=== PATIENT | male | born 2005 | race Caucasian/White ===

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

== ENCOUNTER 2025-02-09 10:59 | Emergency (ER) | payer OTHER, SELFPAY ==
--- NOTE | ~2025-02-09 | CT_ITS ---
Exam: CT abdomen and pelvis with contrast Clinical History: [Lower abdominal discomfort ] Comparison: [ None available] Technique: Multiple axial CT images of the abdomen and pelvis were obtained with IV contrast. Sagittal and coronal reformatted images were obtained. FINDINGS: Lung bases: [ ] Liver: [ No mass.] [ No intrahepatic biliary duct dilatation.] Gallbladder: [ No wall thickening or stones.] Common bile duct: [ Normal caliber.] [ No stones.] Spleen: [ Within normal limits.] Pancreas: [ No mass. No pancreatic fluid collection.] Adrenals: [ No masses.] Kidneys: [ No masses. No hydronephrosis.][ ] There is a too small to characterize low-attenuation lesion in the left kidney. Lymph nodes: [ No adenopathy in the abdomen or pelvis.] Stomach, small bowel and colon: [ No bowel wall thickening or obstruction.] Mild concentric thickening of the lugo of the descending and sigmoid colon with a few scattered diverticuli. Peritoneum cavity: [ No mesenteric fat stranding or fluid.] Bladder: Mild concentric thickening of the lugo of the moderately distended bladder. Differential includes incomplete bladder wall distention versus cystitis. Osseous structures: [ No acute fracture or destructive lesion.] [ Multilevel degenerative change in the visualized spine.] Abdominal aorta: [ No aneurysm.] Additional findings: [ None of significance.] IMPRESSION: 1. Mild concentric thickening of the lugo of the moderately distended bladder. Differential includes incomplete bladder wall distention versus cystitis. 2. Mild concentric thickening of the lugo of the descending and sigmoid colon. Differential includes incomplete bowel distention versus mild colitis/diverticulitis. If symptoms persist or worsen, consider a short-term follow-up study or additional imaging for further assessment. Reviewed, dictated and finalized at location Q. IMPRESSION: 1. Mild concentric thickening of the lugo of the moderately distended bladder. Differential includes incomplete bladder wall distention versus cystitis. 2. Mild concentric thickening of the lugo of the descending and sigmoid colon. Differential includes incomplete bowel distention versus mild colitis/divertic ulitis. If symptoms persist or worsen, consider a short-term follow-up study or additio nal imaging for further assessment.
--- OUTSIDE RECORDS SUMMARY | 2025-02-09 11:03 | XMS_ITS | Clinical Summary ---
Author Organization [facility] Address [address] [place] [address] Care Team Providers Care Manager Operations And Procurement Name Role Phone Miscellaneous, Not In File Primary Care Provider Unavailable Allergies No known active allergies Medications prochlorperazin e (COMPAZINE) 10 mg tablet Take 1 tablet (10 mg total) by mouth 2 (two) times a day as needed for nausea or vomiting 10 tablet 03/15/2024 Active omeprazole 20 mg tablet,disinteg rat, delay rel Take 20 mg by mouth 2 (two) times a day 06/02/2023 Active Active Problems Problem Noted Date Diagnosed Date Cannabinoid hyperemesis syndrome 12/25/2024 Gastroenteritis 12/24/2024 Encounters Date Type Department Care Team Description 12/24/2024 12:25 AM CDT - 12/25/2024 6:44 PM CDT Hospital Encounter [facility] IM[facility] [address] [place] [address] Christopher Frederick MD Abbas, Shazia, MD Dhawan, Vibhu, MD Gastroenteritis (Primary Dx); Nausea and vomiting, unspecified vomiting type; Cannabinoid hyperemesis syndrome Discharge Disposition: Discharge to home or self care from Last 3 Months Social History Tobacco Use Types Packs/Day Years Used Date Smoking Tobacco: Never Tobacco Cessation:Counseling Given: Not Answered Alcohol Use Standard Drinks/Week Comments Defer 0 (1 standard drink = 0.6 oz pur e alcohol) AUDIT-C Answer Date Recorded Q1: How often do you have a drink containing alc ohol? Patient declined 12/24/2024 Q2: How many drinks containi ng alcohol do you have on a typical day when you are drinking? Patient declined 12/24/2024 Q3: How often do you have si x or more drinks on one occasion? Patient declined 12/24/2024 Personal Safety Answer Date Recorded Have you ever been in or are you currently in a harmful physical or emotional relationship or is someone making you feel afraid or unsafe? Denies 12/24/2024 Sex and Gender Information Value Date Recorded Sex Assigned at Not on file Legal Sex Male 8:20 AM CDT Gender Identity Not on file Sexual Orientation Not on file Obstetrics History Growth Chart Information Age Height Weight [id number] th Percentile BMI Percentile Head Circum Head Circum Percentile Date 19 years 177.8 cm (5' 10) 77.4 kg (170 lb 10.2 oz) 72.10%* 2024 18 years 70.8 kg (156 lb) 2023 * [facility] (Boys, 2-20 Years) Last Filed Vital Signs Vital Sign Reading Time Taken Comments Blood Pressure 159/88 12/25/2024 5:26 PM CDT Pulse 70 12/25/2024 5:26 PM CDT Temperature 36.7 C (98 F) 12/25/2024 5:26 PM CDT Respiratory Rate 18 12/25/2024 5:26 PM CDT Oxygen Saturation 99% 12/25/2024 5:26 PM CDT Inhaled Oxygen Concentration - - Weight 77.4 kg (170 lb 10.2 oz) 12/24/2024 6:08 AM CDT Height 177.8 cm (5' 10) 12/24/2024 6:08 AM CDT Body Mass Index 24.48 12/24/2024 6:08 AM CDT Plan of Treatment Health Maintenance Due Date Last Done Comments Depression Screening 2005 Hepatitis C Screening 2005 HPV Vaccines (2 - Male 2-dose series) 06/17/2018 12/15/2017 Meningococcal B Vaccine (1 of 2 - Standard) 2021 Regular Well Visit/Exam 18-64 12/03/2023 Influenza Vaccine (#1) 2025 8, 04/20/2017, 04/01/2012 DTaP/Tdap/Td Vaccine (7 - Td or Tdap) 12/16/2027 12/15/2017, 02/25/2011, 06/06/2007, Additional history exists Hepatitis B Screening Completed 08/06/2006 , 04/21/2006, 02/05/2006, Additional history exists Pneumococcal vaccine <65 Completed 007, 08/06/2006, 04/21/2006, Additional history exists Varicella Vaccines Completed 02/25/2011, 01/07/2007 Meningococcal Vaccine Aged Out 12/15/2017 No nikita felicitas eligible based on patient's age to complete this topic Procedures Procedure Name Priority Date/Time Associated Diagnosis Comments EGFR Routine 12/25/2024 2:28 AM CDT CBC WITHOUT DIFFERENTIAL Routine 12/25/2024 2:28 AM CDT BASIC METABOLIC PANEL Routine 12/25/2024 2:28 AM CDT OPIATES CONFIRMATION MS, URINE Routine 12/24/2024 4:12 PM CDT DRUGS OF ABUSE SCREEN, URINE WITH REFLEX CONFIRMATION Routine 12/24/2024 4:12 PM CDT URINALYSIS AND REFLEX TO MICROSCOPIC AND CULTURE STAT 12/24/2024 4:12 PM CDT DIFFERENTIAL AUTO STAT 12/24/2024 7:1 2 AM CDT PROCALCITONIN Routine 12/24/2024 7:12 AM CDT CBC WITH AUTO DIFFERENTIAL STAT 12/24/2024 7:[address] ABDOMEN PELVIS W CONTRAST ED 12/24/2024 2:07 AM CDT ETHANOL Add-On 12/24/2024 12:28 AM CDT EGFR STAT 12/24/2024 12:28 AM CDT DIFFERENTIAL AUTO STAT 12/24/2024 12: 28 AM CDT LIPASE STAT 12/24/2024 12:28 AM CDT COMPREHENSIVE METABOLIC PANEL STAT 12/24/2024 12:28 AM CDT CBC WITH AUTO DIFFERENTIAL STAT 12/24/2024 12:28 AM CDT from Last 3 Months Results * eGFR (12/25/2024 2:28 AM CDT) eGFR >90 >=60 mL/min/1. 73 m2 Comment: Interpretive Data Reference Interval Normal >/= 90 mL/min/1.73m2 Mildly decreased* 60 - 89 mL/min/1.73m2 Mildly to moderately decreased 45 - 59 mL/min/1.73m2 Moderately to severely decreased 30 - 44 mL/min/1.73m2 Severely decreased 15 - 29 mL/min/1.73m2 Kidney Failure < 15 mL/min/1.73m2 *Relative to young adult level Estimated glomerular filtration rate is determined by the 2020 CKD-EPI equation recommended by the National Kidney Foundation (A Unifying Approach to GFR Estimation: Recommendations of the NKF-ASK Task Force on Reassessing the Inclusion of Race in Diagnosing Kidney Disease, JASN 2020). The CKD-EPI equation should not be used for patients with unstable renal function and has not been validated in children and those over 70. Current interpretive data was last reviewed 2021. Blood 12/25/2024 2:28 AM CDT 12/25/2024 3:24 AM CDT us Tara Otero MD LAB BLOOD ORDERABLES Final Resul t [facility] 1 [facility] Department [place] [address] * CBC without differential (12/25/2024 2:28 AM CDT) WBC 8.76 3.80 - 9.90 K/cumm Hgb 13.7 13.0 - 17.5 g/dL [facility]) Hct 40.7 38.9 - 50.3 % [facility] Plt 226 150 - 400 K/cumm [facility] ([place] MPV 9.6 9.1 - 12.3 fL [facility] RBC 4.72 4.30 - 5.80 M/cumm [facility] MCV 86.2 81.3 - 96.4 fL [facility] MCH 29.0 27.1 - 33.3 pg [facility] MCHC 33.7 32.3 - 35.7 g/dL [facility] RDW CV 13.2 11.1 - 14.9 % [facility] RDW SD 41.5 35.7 - 48.1 fL [facility] NRBC abs 0.00 0.00 - 0.01 K/cumm [facility] Blood 12/25/2024 2:28 AM CDT 12/25/2024 3:21 AM CDT us Tara Otero MD LAB BLOOD ORDERABLES Final Resul t [facility] ([place]) 1 [facility] Department of Laboratories [place] [id number] * (ABNORMAL) Basic metabolic panel (12/25/2024 2:28 AM CDT) Sodium 136 135 - 145 mmol/L [facility] ([place]) Potassium, pl 4.5 3.3 - 4.9 mmol/L [facility] Chloride 96(L) 97 - 110 mmol/L [facility]) CO2 27 22 - 32 mmol/L [facility] Anion gap 13 2 - 15 mmol/L [facility] BUN 14 6 - 25 mg/dL [facility] Creatinine 0.88 0.80 - 1.30 mg/dL [facility] Glucose 83 70 - 199 mg/dL [facility] Comment: Interpretive Data Fasting glucose >/= 126 mg/dl is diagnostic for diabetes. Fasting is defined as no caloric intake for at least 8 hours. Fasting glucose between 100 mg/dl to 125 mg/dl is diagnostic of prediabetes. In a patient with classic symptoms of hyperglycemia or hyperglycemic crisis, a random glucose >/= 200 mg/dl is diagnostic for diabetes. In the absence of unequivocal hyperglycemia, results should be confirmed by repeat testing. The classification and Diagnosis of Diabetes Diabetes Care 2021; 46: S19-S40. Current interpretive data was last revised 2022. Calcium 9.6 8.5 - 10.3 mg/dL [facility] Blood 12/25/2024 2:28 AM CDT 12/25/2024 3:24 AM CDT us Tara Otero MD LAB BLOOD ORDERABLES Final Resul t [facility] ([place]) 1 [facility] Department [place] [address] * (ABNORMAL) Drugs of Abuse Screen, Urine with Reflex Confirmation (12/24/2024 4:12 PM CDT) Pathologist [facility] Amphetamine, ur Not Detected CutOff 500ng/mL [facility]) Comment: Interpretive Data - Amphetamines: Samples containing greater than 500 ng/mL d-methamphetamine or other cross-reacting amphetamine compounds are reported as positive. Amphetamine immunoassays are subject to significant false positive rates due to cross-reactivity of non-amphetamine drugs. Confirmatory testing required for definitive results. Current Interpretive Data was last reviewed 2022. Barbiturates, ur Not Detected CutOff 200ng/mL [facility] ([place]) Comment: Interpretive Data - Barbiturates: Samples containing greater than 200 ng/mL secobarbital or other cross-reacting barbiturate compounds are reported as positive. False positive and false negative results are possible. Confirmatory testing required for definitive results. Current Interpretive Data was last reviewed 2022. Benzodiazepines, ur Not Detected CutOff 100ng/mL [facility] ([place]) Comment: Interpretive Data - Benzodiazepines: Samples containing greater than 100 ng/mL nordiazepam or other cross-reacting compounds are reported as positive. False positive and false negative results are possible. Confirmatory testing required for definitive results. Current Interpretive Data was last reviewed 2022. Cannabinoids, ur Screen Positive, presumptive (A) CutOff 50 ng/mL [facility] ([place]) Comment: Interpretive Data - Cannabinoids: Samples containing greater than 50 ng/mL delta-9 THC -COOH or other cross- reacting compounds are reported as positive. False positive and false negative results are possible. Confirmatory testing required for definitive results. Current Interpretive Data was last reviewed 2022. Cocaine, ur Not Detected CutOff 150ng/mL [facility] ([place]) Comment: Interpretive Data - Cocaine: Samples containing greater than 150 ng/mL benzoylecgonine or other cross- reacting compounds are reported as positive. False positive and false negative results are possible. Confirmatory testing required for definitive results. Current Interpretive Data was last reviewed 2022. Fentanyl, Ur Not Detected CutOff 5 ng/mL [facility] ([place] Comment: Interpretive Data - Fentanyl: Samples containing greater than 5 ng/mL norfentanyl, fentanyl, or other cross-reacting fentanyl compounds are reported as positive. False positive and false negative results are possible. Confirmatory testing required for definitive results. Current Interpretive Data was last reviewed 2023. Methadone, ur Not Detected CutOff 300ng/mL [facility] ([place]) Comment: Interpretive Data - Methadone: Samples containing greater than 300 ng/mL d,l-methadone or other cross-reacting compounds are reported as positive. False positive and false negative results are possible. Confirmatory testing required for definitive results. Current Interpretive Data was last reviewed 2022. Opiates, ur Screen Positive, presumptive (A) CutOff 300ng/mL [facility] ([place] Comment: Interpretive Data - Opiates: Samples containing greater than 300 ng/mL morphine or other cross-reacting compounds are reported as positive. False positive and false negative results are possible. Confirmatory testing required for definitive results. Current Interpretive Data was last reviewed 2022. Oxycodone, ur NOT DETECTED CutOff 100ng/mL [facility] ([place] Comment: Interpretive Data - Oxycodone: Samples containing greater than 100 ng/mL oxycodone or other cross-reacting compounds are reported as positive. False positive and false negative results are possible. Confirmatory testing required for definitive results. Current Interpretive Data was last reviewed 2022. Phencyclidine, ur Not Detected CutOff 25 ng/mL [facility] ([place] Comment: Interpretive Data - Phencyclidine: Samples containing greater than 25 ng/mL phencyclidine or other cross-reacting compounds are reported as positive. False positive and false negative results are possible. Confirmatory testing required for definitive results. Current Interpretive Data was last reviewed 2022. Urine Creatinine 237 mg/dL [facility] ([place]) Comment: Interpretive Data Urine Creatinine: < 10 mg/dL is extremely dilute = or > 10 but < 20 mg/dL is dilute = or > 20 mg/dL is normal Current Interpretive Data was last revised on 2017. Urine 12/24/2024 4:12 PM CDT 12/24/2024 4:29 PM CDT Narrative [facility] ([place]) - 12/24/2024 4:57 PM CDT Drug of Abuse screening is performed by immunoassay for medical purposes only. This is not to be used for Pain Management purposes. If Detected, confirmation testing will be performed for Amphetamines, Cocaine, Fentanyl, Methadone, Opiates, Oxycodone or Phencyclidine. us Tara Otero MD LAB URINE ORDERABLES Final Resul t [facility] ([place]) 1 [facility] Department [place] [address] * (ABNORMAL) Opiates Confirmation, Urine (12/24/2024 4:12 PM CDT) Codeine Conf, Ur Does Not Confirm CutOff 50 ng/mL Comment:Testing performed by : [facility], [address] [place] [address] 6- Acetylmorphine Conf, Ur Does Not Confirm CutOff 10 ng/mL [facility] ([place]) Comment:Testing performed by : [facility], [address] [place]., [address] Hydrocodone Conf, Ur Does Not Confirm CutOff 50 ng/mL [facility] ([place]) Comment:Testing performed by : [facility], [address] [place] [address] Morphine Conf, Ur Confirmed Positive(A) CutOff 50 ng/mL [facility] ([place]) Comment:Testing performed by : [facility], [address] [place]., [address] Hydromorphone Conf, Ur Does Not Confirm CutOff 50 ng/mL [facility] ([place]) Comment: Interpretive Data This test detects the presence or absence of drug compounds using LC Tandem mass spectrometry and is not intended to assess compliance with prescribed medications. While this test is highly specific, false positive and false negative results may occur in very rare circumstances. Contact the laboratory for consultation, if needed. Performance characteristics were determined by the [facility] in a manner consistent with CLIA requirement and has not been cleared or approved by the U.S. Food and Drug Administration. Current interpretive data was last revised 2020. Testing performed by: [facility], 1 [facility], [address] Urine 12/24/2024 4:12 PM CDT 12/24/2024 7:41 PM CDT us Tara Otero MD LAB URINE ORDERABLES Final Resul t [facility] ([place]) 1 [facility] Department [place] [address] * (ABNORMAL) Urinalysis reflex to microscopic and culture Urine (12/24/2024 4:12 PM CDT) Color, ur Yellow Yellow Clarity, ur Clear Clear [facility] ([place]) Specific gravity, ur 1.025 1.003 - 1.030 [facility] ([place]) pH, urine 6.0 [facility] ([place]) Comment: Interpretive Data U rine pH is affected by diet, medications, systemic acid-base disturbances, and renal tubular function. pH may affect urinary stone formation. For example, urine pH below 6.0 may help reduce the tendency for calcium phosphate stones and pH greater than 6.0 may reduce the tendency for uric acid stone formation. Source: [facility] [place] Current Interpretive Data was last revised on 2017 Protein, ur ql Trace Negative [facility]) Glucose, ur ql Negative Negative [facility] ([place]) Ketones, ur 3+(A) Negative [facility] ([place]) Bilirubin, ur Negative Negative [facility] ([place]) Blood, ur Negative Negative [facility] ([place]) Urobilinogen, ur <2.0 <2.0 mg/dL [facility] ([place]) Nitrite, ur Negative Negative [facility] ([place]) Leukocyte esterase, ur Negative Negative [facility] ([place]) UA reflex comment Reflex conditions for microscopic UA and culture not met. [facility] ([place]) Urine 12/24/2024 4:12 PM CDT 12/24/2024 4:29 PM CDT us Christopher Frederick MD LAB MICROBIOLOGY - GENERAL O RDERABLES Final Result [facility] ([place]) 1 [facility] Department [place] [address] * (ABNORMAL) Differential, auto (12/24/2024 7:12 AM CDT) Neutrophil abs 7.29(H) 1.50 - 6.50 K/cumm Imm gran abs 0.03 0.00 - 0.10 K/cumm [facility] ([place]) Lymphocyte abs 2.28 0.80 - 3.30 K/cumm [facility] ([place]) Monocyte abs 0.99(H) 0.20 - 0.80 K/cumm [facility] ([place]) Eosinophil abs 0.01 0.00 - 0.50 K/cumm [facility] ([place]) Basophil abs 0.01 0.00 - 0.10 K/cumm [facility] ([place]) Neutrophil pct 68.7 % [facility]) Comment: Interpretive Data Percent cell count reference ranges are not reported, since discordance with absolute values may lead to misinterpretation of CBC data. Current Interpretive Data was last revised on 2017. Imm gran pct 0.3 % [facility] ([place]) Comment: Interpretive Data Percent cell count reference ranges are not reported, since discordance with absolute values may lead to misinterpretation of CBC data. Current Interpretive Data was last revised on 2017. Lymphocyte pct 21.5 % [facility] ([place]) Comment: Interpretive Data Percent cell count reference ranges are not reported, since discordance with absolute values may lead to misinterpretation of CBC data. Current Interpretive Data was last revised on 2017. Monocyte pct 9.3 % [facility] ([place]) Comment: Interpretive Data Percent cell count reference ranges are not reported, since discordance with absolute values may lead to misinterpretation of CBC data. Current Interpretive Data was last revised on 2017. Eosinophil pct 0.1 % [facility] Comment: Interpretive Data Percent cell count reference ranges are not reported, since discordance with absolute values may lead to misinterpretation of CBC data. Current Interpretive Data was last revised on 2017. Basophil pct 0.1 % [facility] ([place]) Comment: Interpretive Data Percent cell count reference ranges are not reported, since discordance with absolute values may lead to misinterpretation of CBC data. Current Interpretive Data was last revised on 2017. Blood 12/24/2024 7:12 AM CDT 12/24/2024 7:26 AM CDT us Christopher Frederick MD LAB BLOOD ORDERABLES Final R esult [facility] ([place]) 1 [facility] Department [place] [address] * Procalcitonin (12/24/2024 7:12 AM CDT) Procalcitonin 0.09 <=0.25 ng/mL Comment:Testing performed by : [facility], [facility] [facility], [place]., [address] Blood 12/24/2024 7:12 AM CDT 12/24/2024 8:28 PM CDT us Tara Otero MD LAB BLOOD ORDERABLES Final Resul t [facility] ([place]) 1 [facility] [place] [address] * (ABNORMAL) CBC with auto differential (12/24/2024 7:12 AM CDT) WBC 10.61(H) 3.80 - 9.90 K/cumm Hgb 13.1 13.0 - 17.5 g/dL [facility] ([place]) Hct 37.8(L) 38.9 - 50.3 % [facility] ([place]) Plt 234 150 - 400 K/cumm [facility] ([place]) MPV 9.5 9.1 - 12.3 fL [facility] ([place]) RBC 4.59 4.30 - 5.80 M/cumm [facility] ([place]) MCV 82.4 81.3 - 96.4 fL [facility] ([place]) MCH 28.5 27.1 - 33.3 pg [facility] ([place]) MCHC 34.7 32.3 - 35.7 g/dL [facility] ([place]) RDW CV 13.4 11.1 - 14.9 % [facility]) RDW SD 40.1 35.7 - 48.1 fL [facility] ([place]) NRBC abs 0.00 0.00 - 0.01 K/cumm [facility] ([place]) Blood 12/24/2024 7:12 AM CDT 12/24/2024 7:26 AM CDT us Christopher Frederick MD LAB BLOOD ORDERABLES Final R esult Performing Organization Address City/[facility]/ZIP Co de Phone Number [facility] ([place]) 1 [facility] [place] [address] * CT Abdomen Pelvis W Contrast (12/24/2024 2:07 AM CDT) Anatomical Region Laterality Modality Body N/A Computed Tomogra phy 12/24/2024 2:41 AM CDT Narrative 12/24/2024 2:44 AM CDT EXAM DESCRIPTION: CT ABDOMEN PELVIS W CONTRAST REASON FOR STUDY: Abdominal pain, acute, nonlocalized c/o abdominal pain N/V/D X 3 DAYS TECHNIQUE: CT scan of the abdomen and pelvis performed with intravenous and without oral contrast using helical scanning technique with dynamic intravenous contrast injection. Reconstructed coronal and sagittal MPR images reviewed. All images stored on PACS. Automated exposure control was used as a dose optimization technique for this examination. CONTRAST TYPE/DOSE: 75mL of IOVERSOL 350 MG IODINE/ML INTRAVENOUS SYRINGE injected via intravenous COMPARISON: CT of the abdomen and pelvis of March 15, 2024. FINDINGS: LOWER CHEST: The lung bases are clear. LIVER: The liver is normal in attenuation without focal lesion. GALLBLADDER: No stones identified. Normal wall. No evidence of pericholecystic fluid. BILE DUCTS: No intrahepatic or extrahepatic ductal dilatation. PANCREAS: Normal. SPLEEN: No focal lesions. Spleen is normal in size. ADRENALS: Normal. KIDNEYS/URINARY TRACT: There are multiple low density foci in the left kidney, too small to be characterized by CT, consistent with cysts or angiomyolipomas. Renal parenchyma is otherwise unremarkable. No visualized renal or ureteral stones. There is no hydronephrosis or hydroureter. Urinary bladder is unremarkable. VASCULATURE: No acute abnormality seen. No abdominal aortic aneurysm. GI: The stomach appears normal. There is no significant small bowel dilation or visible thickening. No gross colonic abnormalities identified. The appendix is normal. PERITONEUM/MESENTERY: No ascites or free air. LYMPH NODES: There are no enlarged lymph nodes seen by CT size criteria. RETROPERITONEUM: No retroperitoneal abnormalities. REPRODUCTIVE: The prostate and seminal vesicles are unremarkable. MUSCULOSKELETAL: No significant abnormality. OTHER: No other abnormality. IMPRESSION: No acute findings in the abdomen or pelvis. THIS IS AN ELECTRONICALLY VERIFIED FINAL REPORT 12/24/2024 2:44 AM - Electronically signed by Eileen Birmingham M.D. SN: Report ID: [id number] Reading Location: [place] [address] Procedure Note Eileen Birmingham MD - 12/24/2024 EXAM DESCRIPTION: CT ABDOMEN PELVIS W CONTRAST REASON FOR STUDY: Abdominal pain, acute, nonlocalized c/o abdominal pain N/V/D X 3 DAYS TECHNIQUE: CT scan of the abdomen and pelvis performed with intravenousand without oral contrast using helical scanning technique with dynamic intravenous contrast injection. Reconstructed coronal and sagittal MPRimages reviewed. All images stored on PACS. Automated exposure control was usedas a dose optimization technique for this examination. CONTRAST TYPE/DOSE: 75mL of IOVERSOL 350 MG IODINE/ML INTRAVENOUSSYRINGE injected via intravenous COMPARISON: CT of the abdomen and pelvis of March 15, 2024. FINDINGS: LOWER CHEST: The lung bases are clear. LIVER: The liver is normal in attenuation without focal lesion. GALLBLADDER: No stones identified. Normal wall. No evidence of pericholecystic fluid. BILE DUCTS: No intrahepatic or extrahepatic ductal dilatation. PANCREAS: Normal. SPLEEN: No focal lesions. Spleen is normal in size. ADRENALS: Normal. KIDNEYS/URINARY TRACT: There are multiple low density foci in the left kidney, too small to be characterized by CT, consistent with cysts or angiomyolipomas. Renal parenchyma is otherwise unremarkable. Novisualized renal or ureteral stones. There is no hydronephrosis or hydroureter. Urinary bladder is unremarkable. VASCULATURE: No acute abnormality seen. No abdominal aortic aneurysm. GI: The stomach appears normal. There is no significant small bowel dilation or visible thickening. No gross colonic abnormalitiesidentified. The appendix is normal. PERITONEUM/MESENTERY: No ascites or free air. LYMPH NODES: There are no enlarged lymph nodes seen by CT size criteria. RETROPERITONEUM: No retroperitoneal abnormalities. REPRODUCTIVE: The prostate and seminal vesicles are unremarkable. MUSCULOSKELETAL: No significant abnormality. OTHER: No other abnormality. IMPRESSION: No acute findings in the abdomen or pelvis. THIS IS AN ELECTRONICALLY VERIFIED FINAL REPORT 12/24/2024 2:44 AM - Electronically signed by Eileen Birmingham M.D. SN: Report ID: [id number] Reading Location: [id number] Christopher Frederick MD IM CT PROCEDURES Final Resu lt * eGFR (12/24/2024 12:28 AM CDT) eGFR >90 >=60 mL/min/1. 73 m2 Comment: Interpretive Data Reference Interval Normal >/= 90 mL/min/1.73m2 Mildly decreased* 60 - 89 mL/min/1.73m2 Mildly to moderately decreased 45 - 59 mL/min/1.73m2 Moderately to severely decreased 30 - 44 mL/min/1.73m2 Severely decreased 15 - 29 mL/min/1.73m2 Kidney Failure < 15 mL/min/1.73m2 *Relative to young adult level Estimated glomerular filtration rate is determined by the 2020 CKD-EPI equation recommended by the National Kidney Foundation (A Unifying Approach to GFR Estimation: Recommendations of the NKF-ASK Task Force on Reassessing the Inclusion of Race in Diagnosing Kidney Disease, JASN 2020). The CKD-EPI equation should not be used for patients with unstable renal function and has not been validated in children and those over 70. Current interpretive data was last reviewed 2021. Blood 12/24/2024 12:2 8 AM CDT 12/24/2024 1:20 AM CDT us Christopher Frederick MD LAB BLOOD ORDERABLES Final R esult VI[facility] 1 [facility] Department [place] [address] * (ABNORMAL) Differential, auto (12/24/2024 12:28 AM CDT) Neutrophil abs 12.78(H) 1.50 - 6.50 K/cumm Imm gran abs 0.07 0.00 - 0.10 K/cumm [facility] ([place]) Lymphocyte abs 2.21 0.80 - 3.30 K/cumm [facility] ([place]) Monocyte abs 1.12(H) 0.20 - 0.80 K/cumm [facility] ([place]) Eosinophil abs 0.00 0.00 - 0.50 K/cumm [facility] ([place]) Basophil abs 0.02 0.00 - 0.10 K/cumm [facility] ([place]) Neutrophil pct 79.0 % [facility] ([place]) Comment: Interpretive Data Percent cell count reference ranges are not reported, since discordance with absolute values may lead to misinterpretation of CBC data. Current Interpretive Data was last revised on 2017. Imm gran pct 0.4 % [facility] ([place]) Comment: Interpretive Data Percent cell count reference ranges are not reported, since discordance with absolute values may lead to misinterpretation of CBC data. Current Interpretive Data was last revised on 2017. Lymphocyte pct 13.6 % [facility] ([place]) Comment: Interpretive Data Percent cell count reference ranges are not reported, since discordance with absolute values may lead to misinterpretation of CBC data. Current Interpretive Data was last revised on 2017. Monocyte pct 6.9 % [facility] ([place]) Comment: Interpretive Data Percent cell count reference ranges are not reported, since discordance with absolute values may lead to misinterpretation of CBC data. Current Interpretive Data was last revised on 2017. Eosinophil pct 0.0 % [facility] ([place]) Comment: Interpretive Data Percent cell count reference ranges are not reported, since discordance with absolute values may lead to misinterpretation of CBC data. Current Interpretive Data was last revised on 2017. Basophil pct 0.1 % [facility] ([place]) Comment: Interpretive Data Percent cell count reference ranges are not reported, since discordance with absolute values may lead to misinterpretation of CBC data. Current Interpretive Data was last revised on 2017. Blood 12/24/2024 12:2 8 AM CDT 12/24/2024 1:20 AM CDT us Christopher Frederick MD LAB BLOOD ORDERABLES Final R esult [facility] ([place]) 1 [facility] Department of Laboratories [place], [place] [id number] * (ABNORMAL) CBC with auto differential (12/24/2024 12:28 AM CDT) WBC 16.20(H) 3.80 - 9.90 K/cumm Hgb 16.4 13.0 - 17.5 g/dL [facility]) Hct 47.2 38.9 - 50.3 % [facility]) Plt 315 150 - 400 K/cumm [facility] ([place]) MPV 9.8 9.1 - 12.3 fL [facility] ([place]) RBC 5.66 4.30 - 5.80 M/cumm [facility] ([place]) MCV 83.4 81.3 - 96.4 fL [facility] ([place]) MCH 29.0 27.1 - 33.3 pg [facility] ([place]) MCHC 34.7 32.3 - 35.7 g/dL [facility] ([place]) RDW CV 13.3 11.1 - 14.9 % [facility] ([place]) RDW SD 40.8 35.7 - 48.1 fL [facility] ([place]) NRBC abs 0.00 0.00 - 0.01 K/cumm [facility] ([place]) Blood Venous blood specimen / Unknown 12/24/2024 12:28 AM CDT 12/24/2024 1:20 AM CDT Christopher Frederick MD LAB BLOOD ORDERABLES Final R esult [facility] ([place]) 1 [facility] [place] [address] * (ABNORMAL) Lipase (12/24/2024 12:28 AM CDT) Lipase 228(H) 10 - 99 Units/L [facility] ([place]) Blood Venous blood specimen / Unknown 12/24/2024 12:28 AM CDT 12/24/2024 1:20 AM CDT Christopher Frederick MD LAB BLOOD ORDERABLES Final R esult [facility] ([place]) 1 [facility] [place] [address] * Ethanol (12/24/2024 12:28 AM CDT) Ethanol <10 <=10 mg/dL [facility] Comment: Interpretive Data Legal limit of intoxication > or = 80 mg/dL Levels > or = 400 mg/dL are potentially TOXIC. Current interpretive data was last revised on 2018. Blood 12/24/2024 12:2 8 AM CDT 12/24/2024 2:25 AM CDT Christopher Frederick MD LAB BLOOD ORDERABLES Final R esult [facility] ([place]) 1 [facility] Department [place] [address] * (ABNORMAL) Comprehensive metabolic panel (12/24/2024 12:28 AM CDT) Sodium 137 135 - 145 mmol/L [facility] ([place]) Potassium, pl 4.3 3.3 - 4.9 mmol/L [facility]) Chloride 90(L) 97 - 110 mmol/L [facility]) CO2 27 22 - 32 mmol/L [facility]) Anion gap 20(H) 2 - 15 mmol/L [facility] ([place]) BUN 21 6 - 25 mg/dL [facility]) Creatinine 0.90 0.80 - 1.30 mg/dL [facility]) Glucose 111 70 - 199 mg/dL [facility] ([place]) Comment: Interpretive Data Fasting glucose >/= 126 mg/dl is diagnostic for diabetes. Fasting is defined as no caloric intake for at least 8 hours. Fasting glucose between 100 mg/dl to 125 mg/dl is diagnostic of prediabetes. In a patient with classic symptoms of hyperglycemia or hyperglycemic crisis, a random glucose >/= 200 mg/dl is diagnostic for diabetes. In the absence of unequivocal hyperglycemia, results should be confirmed by repeat testing. The classification and Diagnosis of Diabetes Diabetes Care 2021; 46: S19-S40. Current interpretive data was last revised 2022. Calcium 10.9(H) 8.5 - 10.3 mg/dL [facility]) Bilirubin, total 0.9 0.1 - 1.2 mg/dL [facility] ([place]) Protein, pl 9.1(H) 6.5 - 8.5 g/dL [facility]) Albumin 5.2(H) 3.5 - 5.0 g/dL [facility] ([place]) Alk phos 127 70 - 260 Units/L [facility]) ALT 19 7 - 55 Units/L [facility]) AST 30 10 - 50 Units/L [facility] ([place]) Blood 12/24/2024 12:2 8 AM CDT 12/24/2024 1:20 AM CDT Christopher Frederick MD LAB BLOOD ORDERABLES Final R esult [facility] ([place]) 1 [facility] Department [place] [address] from Last 3 Months Insurance [facility] Advance Directives For more information, please contact: [phone] * Full Code (Latest Code Status on File) Date Activated Date Inactivated Comments 12/24/2024 5:35 AM 12/25/2024 10:45 PM * Full Code Date Activated Date Inactivated Comments 12/24/2024 4:31 AM 12/24/2024 5:35 AM Care Teams Manager Operations And Procurement Relationship Specialty Start Date End Date Miscellaneous, Not In File PCP - General 03/15/24
--- OUTSIDE RECORDS SUMMARY | 2025-02-09 11:03 | XMS_ITS | Clinical Summary ---
Author Organization [facility] Address [address] [place] [address] Care Team Providers Care Food Service Worker Hospital Name Role Phone Mickey Neri MD Primary Care Provider [phone] Source Comments [facility],non-owned Affiliates and Associated Physician Practices is amultiple site organization consisting of ambulatory clinics and hospital sitesin [place], [place], [place] and [place]. This disclosure is being madepursuant to the Care Everywhere program and may not contain all information available regarding this patient. 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 Gender Identity Not on file Sexual Orientation Not on file Plan of Treatment Health Maintenance Due Date Last Done Comments HIV SCREENING 2020 HPV VACCINE (1 - Male 3-dose series) 2020 MENINGOCOCCAL (Group B) VACC INE SHARED DECISION-MAKING (1 of 2 - Standard) 2021 HEPATITIS C SCREENING 11/28/2023 DEPRESSION SCREENING 05/17/2024 DTAP/TDAP/TD VACCINES (1 - Tdap) 2024 HEPATITIS B VACCINE (1 of 3 - 19+ 3-dose series) 2024 COVID-19 VACCINE (1 - 2023-2 5 season) 2025 INFLUENZA VACCINE (#1) 2025 ZOSTER VACCINE (1 of 2) 12/03/2055 HIB VACCINE Aged Out No longer eligi ble based on patient's age to complete this topic MENINGOCOCCAL GROUPS A/C/Y/W VACCINE Aged Out No longer eligible b ased on patient's age to complete this topic PNEUMOCOCCAL VACCINE Aged Out No long er eligible based on patient's age to complete this topic Insurance [facility] Care Teams Food Service Worker Hospital Relationship Specialty Start Date End Date Mickey Neri MD [address] [place] [phone] PCP - General Family Medicine 05/30/19
--- OUTSIDE RECORDS SUMMARY | 2025-02-09 11:03 | XMS_ITS | Clinical Summary ---
Author Organization [facility] Address [address] [place] [id number] Care Team Providers Care Speech And Language Clinician Name Role Phone Mickey Neri MD Primary Care Provider [phone] Allergies No known active allergies Medications omeprazole 20 MG capsule 10/31/2019 Active atenolol 50 MG tablet Take 50 mg by mouth daily. 03/20/2020 Active Active Problems Problem Noted Date Diagnosed Date SVT (supraventricular tachycardia) ([facility]) Social History Tobacco Use Types Packs/Day Years Used Date Smoking Tobacco: Never Smokeless Tobacco: Never Alcohol Use Standard Drinks/Week Comments Never 0 (1 standard drink = 0.6 oz pur e alcohol) AUDIT-C Answer Date Recorded Q1: How often do you have a drink containing alc ohol? Never 12/29/2019 Average Number of Drinks Not on file 020 Frequency of Binge Drinking Not on file 12/15 Sex and Gender Information Value Date Recorded Sex Assigned at Not on file Legal Sex Male 4:32 AM CDT Gender Identity Not on file Sexual Orientation Not on file Last Filed Vital Signs Vital Sign Reading Time Taken Comments Blood Pressure 103/91 04/01/2020 12:00 AM ENVIRONMENTAL PROGRAMS MANAGER Pulse 78 03/31/2020 11:45 PM ENVIRONMENTAL PROGRAMS MANAGER Temperature 36.1 C (97 F) 03/31/2020 10:09 PM ENVIRONMENTAL PROGRAMS MANAGER Respiratory Rate 15 03/31/2020 11:45 PM ENVIRONMENTAL PROGRAMS MANAGER Oxygen Saturation 100% 03/31/2020 11:45 PM ENVIRONMENTAL PROGRAMS MANAGER Inhaled Oxygen Concentration - - Weight 113.4 kg (250 lb) 03/31/2020 10:09 PM ENVIRONMENTAL PROGRAMS MANAGER Height 172.7 cm (5' 8) 03/31/2020 10:09 PM ENVIRONMENTAL PROGRAMS MANAGER Body Mass Index 38.01 03/31/2020 10:09 PM ENVIRONMENTAL PROGRAMS MANAGER Body Mass Index Percentile 99.76% 03/31/2020 10: 09 PM ENVIRONMENTAL PROGRAMS MANAGER Growth Chart: [facility] (Boys, 2-2 0 Years) Plan of Treatment Health Maintenance Due Date Last Done Comments Annual Physical 2008 HPV Vaccines (2 - Male 2-dos e series) 06/17/2018 12/15/2017 Meningococcal B Vaccine (1 o f 2 - Standard) 2021 Hepatitis C 12/03/2023 DTaP, Tdap and Td Vaccines ( 2 - Tdap) 2024 06/06/2007 Hepatitis B Vaccines (1 of 3 - 19+ 3-dose series) 2024 COVID-19 Vaccine (1 - 2023-2 5 season) 2025 Meningococcal Vaccine Aged Out 12/15/2017 No nikita felicitas eligible based on patient's age to complete this topic Pneumococcal Vaccine: Pediat rics (0 to 5 Years) and At-Risk Patients (6 to 49 Years) Aged Out No longer eligi ble based on patient's age to complete this topic RSV Immunizations Under 20 Months Aged Out No longer eligible based on patient's age to complete this topic Insurance Advance Directives * Full Code (Latest Code Status on File) Date Activated Date Inactivated Comments 12/29/2019 2:45 PM 12/30/2019 7:55 PM Care Teams Speech And Language Clinician Relationship Specialty Start Date End Date Mickey Neri MD [address] [place] [address] PCP - General FAMILY PRACTICE 12/29/19
[2025-02-09 11:21] VITALS: BP 154/92; PULSE 91; RESP 16; TEMP 36.6; O2SAT 100
--- NOTE | 2025-02-09 11:47 | ED.GENADULT ---
HPI - General Adult General Chief complaint: Nausea/Vomiting/Diarrhea Stated complaint: vomiting, diarrhea, abd pain Time Seen by Provider: 02/09/25 11:15 History of Present Illness HPI narrative: 19-year-old male present to the emergency department for evaluation for nausea vomiting diarrhea. Patient did have follow-up with total lacks as had an x-ray that was concerning for ileus and they were referred to the emergency department for further evaluation including a CT scan. Related Data Home Medications ?Medication ?Instructions ?Recorded ?Confirmed ?Last Taken ?Type omeprazole 20 mg capsule,delayed 20 mg PO DAILY 03/09/24 04/23/24 Unknown History release Allergies Allergy/AdvReac Type Severity Reaction Status Date / Time No Known Drug Allergies Allergy Unknown Hives Verified 02/09/25 11:20 Review of Systems Review of Systems: All systems reviewed & are unremarkable except as noted in HPI and below PMFSH Past Medical History Medical History Patient denies medical problems Exam Narrative: APPEARANCE: Well appearing, no pain, no distress, well-nourished. HEAD: normocephalic, atraumatic. EYES: PERRLA/EOMI, conjunctivae clear. NOSE: Normal no drainage EARS:TMS clear with good light reflex. THROAT: Pharynx clear, no exudate. NECK: Supple. No adenopathy, no masses. RESPIRATORY: Airway patent, respirations nonlabored. Clear to auscultation bilaterally, no rales, rhonchi, wheezing. CARDIOVASCULAR: Regular rate and rhythm without murmurs rubs or gallops. ABDOMINAL: Soft, nontender, nondistended, normal bowel sounds MUSCULOSKELETAL: Moves all extremities. Strength/ROM intact, No edema, No calf tenderness. NEURO: Alert. Cranial nerves II through XII intact. Good gait. Good coordination SKIN: Warm, dry. Normal Color Course Vital Signs Vital signs: Vital Signs Temperature 98 F 02/09/25 11:21 Pulse Rate 91 02/09/25 11:21 Respiratory Rate 16 02/09/25 11:21 Blood Pressure 154/92 H 02/09/25 11:21 Pulse Oximetry 100 02/09/25 11:21 Oxygen Delivery Room Air 02/09/25 11:21 Temperature 98.3 F 02/09/25 15:22 Pulse Rate 78 02/09/25 15:22 Respiratory Rate 20 02/09/25 15:22 Blood Pressure 124/75 02/09/25 15:22 Pulse Oximetry 100 02/09/25 15:22 Oxygen Delivery Room Air 02/09/25 11:21 Medical Decision Making MDM Narrative Medical decision making narrative: 19-year-old male presents to the emergency department for evaluation for nausea vomiting diarrhea. Patient had no further bowel movements in the emergency department so stool culture and C diff were not sent to the lab. Patient is afebrile but does have leukocytosis lobe 0.2 hemoglobin 14.9. No acute abnormalities on the patient's CMP lipase is negative. UA was negative for infection was positive for ketones. Patient was treated with 2 L of lactated Ringer's. CT scan was concerning for colitis versus diverticulitis and CT scan showed evidence of cystitis versus in complaint bladder distension. On re-evaluation patient does feel improved. Patient felt her the results of the workup and plan for discharge home with Zofran for nausea control, antibiotics for colitis and recommendation to follow a clear liquid diet for the next 1-3 days. Differential Diagnosis Differential Diagnosis: Colitis, diverticulitis, cystitis, C diff, COVID, RSV influenza a, bowel obstruction, ileus Vital Signs Vital Signs: Vital Signs Temperature 98 F 02/09/25 11:21 Pulse Rate 91 02/09/25 11:21 Respiratory Rate 16 02/09/25 11:21 Blood Pressure 154/92 H 02/09/25 11:21 Pulse Oximetry 100 02/09/25 11:21 Oxygen Delivery Room Air 02/09/25 11:21 Temperature 98.3 F 02/09/25 15:22 Pulse Rate 78 02/09/25 15:22 Respiratory Rate 20 02/09/25 15:22 Blood Pressure 124/75 02/09/25 15:22 Pulse Oximetry 100 02/09/25 15:22 Oxygen Delivery Room Air 02/09/25 11:21 Lab Data Lab results reviewed: Yes I reviewed the patient's lab results. 02/09/25 11:58 02/09/25 11:58 Labs: Lab Results 02/09/25 02/09/25 Range/Units 11:58 12:03 WBC 11.2 H (4.5-10.0) K/mm3 RBC 5.20 (4.6-6.20) M/mm3 Hgb 14.9 (14.0-18.0) g/dL Hct 44.6 (42.0-52.0) % MCV 85.8 (80-100) fl MCH 28.7 (26-34) pg MCHC 33.4 (32-36) g/dl RDW 14.1 (11.5-14.5) % Plt Count 305 (150-375) k/mm3 MPV 9.2 (7.4-10.4) fl Immature Gran % (Auto) 0.3 (0-0.5) % Neut % (Auto) 86.7 H (45.5-73.1) % Lymph % (Auto) 9.2 L (18.3-44.2) % Towner % (Auto) 3.7 (2.6-8.5) % Eos % (Auto) 0.0 (0-4.4) % Baso % (Auto) 0.1 L (0.2-1.2) % Lymph # (Auto) 1.03 (0.9-3.2) K/mm3 Towner # (Auto) 0.4 (0.1-0.6) K/mm3 Eos # (Auto) 0.0 (0-0.3) K/mm3 Baso # (Auto) 0.0 (0.0-0.1) K/mm3 Abs Immat Gran (auto) 0.03 (0.00-0.031) K/mm3 Absolute Neuts (auto) 9.7 H (1.3-6.7) K/mm3 Absolute Nucleated RBC 0.000 (0.0-0.012) K/mm3 Nucleated RBC % 0.0 (0.0-0.2) % Sodium 139 (134-143) mmol/L Potassium 4.2 (3.4-5.0) mmol/L Chloride 99 (98-107) mmol/L Carbon Dioxide 26 (22-30) mmol/L Anion Gap 14 H (4-12) mmol/L BUN 17 (8-21) mg/dL Creatinine 0.71 (0.7-1.3) mg/dL Estim Creat Clear Calc 147 ml/min Estimated GFR > 60 (59 - ) Glucose 111 H (65-110) mg/dL Lactic Acid 1.1 (0.7-2.0) mmol/L Calcium 9.5 (8.9-10.7) mg/dL Total Bilirubin 0.8 (0.2-1.3) mg/dL AST 34 (17-59) U/L ALT 26 (6-50) U/L Alkaline Phosphatase 118 (58-237) U/L Total Protein 9.0 H (6.3-8.6) g/dL Albumin 5.0 (3.7-5.6) g/dL Lipase 29 (23-300) U/L Urine Color Yellow (Yellow) Urine Appearance Clear (Clear) Urine pH 6.0 (5.0-9.0) Ur Specific Holden 1.035 (1.001-1.035) Urine Protein 2+ H (Negative) mg/dL Urine Glucose (UA) Negative (Negative) mg/dL Urine Ketones 4+ H (Negative) mg/dL Ur Blood (Man) Negative (Negative) Urine Nitrate Negative (Negative) Urine Bilirubin Negative (Negative) Urine Urobilinogen 0.2 (<2.0) mg/dL Leukocyte Esterase Rfl Negative (Negative) NAHED/UL Urine RBC 0-2 (0-2) /hpf Urine WBC 0-5 (0-3) /hpf Ur Squamous Epith Cells None seen (Few) /hpf Urine Bacteria None seen /hpf Urine Casts 0-2 Imaging Data Radiologist's impression: Impressions Abdomen/Pelvis CT 02/09/25 13:20 IMPRESSION: 1. Mild concentric thickening of the lugo of the moderately distended bladder. Differential includes incomplete bladder wall distention versus cystitis. 2. Mild concentric thickening of the lugo of the descending and sigmoid colon. Differential includes incomplete bowel distention versus mild colitis/diverticulitis. If symptoms persist or worsen, consider a short-term follow-up study or additional imaging for further assessment. Discharge Plan Discharge Clinical Impression: Nausea vomiting and diarrhea, Colitis Patient Disposition: Home Condition: Stable Instructions: Antibiotic Form, Clear Liquid Diet (ED), Acute Nausea and Vomiting (ED) Additional Instructions: Zofran as needed for nausea control. Clear liquid diet for the next 1-3 days. Advance to bland diet as tolerated. Antibiotic as directed until completed. Have close follow-up with primary care physician. If you have worsening symptoms please call or return to the emergency department. Patient Language: Uzbek Prescriptions: New ondansetron 4 mg tablet,disintegrating 4 mg PO Q8H PRN (Reason: nausea and vomiting) Qty: 14 0RF amoxicillin-pot clavulanate 875-125 mg tablet 1 tablet PO Q12H 7 Days Qty: 14 0RF No Action ondansetron 4 mg tablet,disintegrating 4 mg PO Q6H PRN (Reason: nausea and vomiting) Qty: 30 0RF omeprazole 20 mg capsule,delayed release(DR/EC) 20 mg PO DAILY Follow-up/Referrals: Jah,MD Haider [Primary Care Provider, Family Practice]
[2025-02-09 12:05] LABS: Hematocrit 44.6 % (42.0-52.0); Hemoglobin 14.9 g/dL (14.0-18.0); Immature Granulocyte Percent A 0.3 % (0-0.5); Lymphocytes Absolute Auto 1.03 K/mm3 (0.9-3.2); Mean Corpuscular HGB Conc 33.4 g/dl (32-36); Mean Corpuscular Hemoglobin 28.7 pg (26-34); Mean Corpuscular Volume 85.8 fl (80-100); Nucleated Red Blood Cells Absolute Auto 0.000 K/mm3 (0.0-0.012); Nucleated Red Blood Cells Perc 0.0 % (0.0-0.2); Platelet Count Result 305 k/mm3 (150-375); Red Blood Count 5.20 M/mm3 (4.6-6.20); White Blood Count 11.2 K/mm3 (4.5-10.0)
[2025-02-09 12:14] LABS: Add Urine Microscopic? YES; Appearance Urine Clear (Clear); Glucose Urine UA Negative (Negative); Leukocyte Esterase Ur Negative LEU/UL (Negative); Nitrate Urine Negative (Negative); Non Pathogenic Casts 0-2; Specific Grav Ur 1.035 (1.001-1.035)
[2025-02-09 12:18] LABS: Alanine Aminotransferase 26 U/L (6-50); Albumin Level 5.0 g/dL (3.7-5.6); Alkaline Phosphatase 118 U/L (58-237); Anion Gap 14 mmol/L (4-12); Aspartate Amino Transferase 34 U/L (17-59); Bilirubin,Total 0.8 mg/dL (0.2-1.3); Blood Urea Nitrogen 17 mg/dL (8-21); Calcium 9.5 mg/dL (8.9-10.7); Carbon Dioxide 26 mmol/L (22-30); Chloride 99 mmol/L (98-107); Estimated CRCL calculation 147 ml/min; Estimated Glomerular Filt Rate > 60; Glucose 111 mg/dL (65-110); Lipase 29 U/L (23-300); Potassium 4.2 mmol/L (3.4-5.0); Sodium 139 mmol/L (134-143); Total Protein 9.0 g/dL (6.3-8.6)
[2025-02-09] MEDS: ONDANSETRON INJ 4 MG/2 ML VIAL IV PUSH (12:30)
[2025-02-09 12:33] VITALS: BP 144/83; PULSE 88; RESP 22; O2SAT 99
[2025-02-09 13:43] VITALS: BP 139/91; PULSE 103; RESP 18; O2SAT 98
[2025-02-09] MEDS: METOCLOPRAMIDE HCL INJ 10 MG/2 ML VIAL IV PUSH (13:48)
[2025-02-09] MEDS: LACTATED RINGERS 1,000 ML 999 ML IV CONT (13:55)
[2025-02-09 14:56] VITALS: BP 124/61; PULSE 80; RESP 13; O2SAT 99
[2025-02-09 15:22] VITALS: BP 124/75; PULSE 78; RESP 20; TEMP 36.8; O2SAT 100
== END 2025-02-09 15:23 | disposition home or self-care (01) ==
PROVIDERS: Emergency Provider Emergency Medicine; PCP Family Medicine
DX: K52.9 Noninfective gastroenteritis and colitis, unspecified (principal)
CPT/HCPCS: 36415; 74177; 80053; 81001; 83605; 83690; 85025; 96361; 96374; 96375; 99284; A9270; J2405; J2765; J7120; Q9967